=== PATIENT | female | born 1965 | race American Indian/Alaskan Native ===

== ENCOUNTER 2017-08-27 12:25 | Outpatient (CLI) | payer OTHER ==
--- NOTE | 2017-08-27 12:50 | XRay Report ---
CHEST TWO VIEWS: 08/27/17 12:25:00 CLINICAL: Bronchitis. COMPARISON: None FINDINGS: Normal heart and pulmonary vasculature.Aortic tortuosity. The lungs are normally expanded and clear.The bones and soft tissues are unremarkable. IMPRESSION: No acute cardiopulmonary process.
== END 2017-08-27 12:26 | disposition home or self-care (01) ==
LOC: SPVIMAG 12:25
PROVIDERS: ATTEND Internal Medicine
DX: J40 Bronchitis, not specified as acute or chronic (principal); Q25.46 Tortuous aortic arch
CPT/HCPCS: 71046

== ENCOUNTER 2018-01-08 10:10 | Day surgery (SDC) | payer OTHER ==
[~2018-01-08 10:10] MED LIST: NACL 0.9% 1000 ML 1,000 ML IV SCH; WATER FOR IRRIG STERILE IR ONE; WATER FOR IRRIG STERILE ONE
[2018-01-08] MEDS ORDERED: WATER FOR IRRIG STERILE IR ONE (10:20)
--- NOTE | 2018-01-08 10:50 | Anesthesia Consultation ---
Anesthesia Consult and Med Hx Date of service: 01/08/18 - Airway Anesthetic Teeth Evaluation: Good ROM Head & Neck: Adequate Mental/Hyoid Distance: Adequate Mallampati Class: Class I Intubation Access Assessment: Good - Pulmonary Exam CTA: Yes - Cardiac Exam Cardiac Exam: RRR - Pre-Operative Health Status ASA Pre-Surgery Classification: ASA2 Proposed Anesthetic Plan: MAC - Cardiovascular System Hx Hypertension: Yes
--- NOTE | 2018-01-08 10:50 | Anesthesia Day of Surgery ---
Anesthesia Day of Surgery - Day of Surgery Patient Examined: Yes Patient H&P Reviewed: Yes Patient is NPO: Yes
[2018-01-08] MEDS ORDERED: DIPRIVAN 10 MG/ML IV ONE ×2 (11:07)
--- NOTE | 2018-01-08 11:34 | Short Stay Summary ---
Short Stay Documentation Date of service: 01/08/18 Narrative H&P: the patient presents today for her first routine screening colonoscopy. Average risks. - History Past Medical History: hypertension, hyperlipidemia Past Surgical History: Social history: no significant social history - Allergies and Medications Current Medications: Allergies No Known Allergies Allergy (Unverified 01/07/18 13:00) Home Medications Medication Instructions Recorded Confirmed Last Taken Type Citalopram Hydrobromide 1 tab PO DAILY 01/07/18 01/08/18 01/05/18 14:00 History [Citalopram HBr] Ibuprofen [Advil 100 MG tab] 200 mg PO Q6H PRN 01/07/18 01/08/18 01/04/18 09:00 History LORazepam [Ativan] 1 mg PO TID PRN 01/07/18 01/08/18 01/01/18 20:00 History Metoprolol Xl [Metoprolol 100 mg PO QDAY 01/07/18 01/08/18 08/07/17 09:00 History SUCCINATE ER TAB] amLODIPine [Norvasc] 5 mg PO DAILY 01/07/18 01/08/18 01/08/18 11:02 History 1200 Active Medications Sodium Chloride (Nacl 0.9% 1000 Ml) 1,000 mls @ 50 mls/hr IV DIRECT ANITA Last Admin: 01/08/18 10:58 Dose: 50 mls/hr - Physical exam General appearance: no acute distress, well-nourished Integumentary: no rash, no growths, no abnormal pigmentation HEENT: Atraumatic, PERRLA, EOMI, Mucous membr. moist/pink Lungs: Clear to auscultation, Normal air movement Breasts: deferred Heart: Regular rate, Normal S1, Normal S2, No murmurs Gastrointestinal: normoactive bowel sounds, no tenderness, no distended, no masses, no guarding, no organomegaly Female Genitourinary: deferred Rectal Exam: normal exam-external/orifice, normal rectal tone, no mass Extremities: no ischemia, pulses intact, pulses symmetrical, No edema, normal temperature, normal color, Full ROM Neurological: Normal gait, Normal speech, Strength at 5/5 X4 ext, Normal tone, Sensation intact, Cranial nerves 3-12 NL - Brief post op/procedure progress note Date of procedure: 01/08/18 Findings: see dictated report Estimated blood loss: none Pathology: none Condition: stable - Disposition Condition at discharge: Good - Discharge Diagnoses (1) Colon cancer screening Status: Acute Short Stay Discharge Plan Activity: other (no driving for 24 hours) Weight Bearing Status: Full Weight Bearing Diet: regular Follow up with: BRIA BECKETT ANP [Primary Care Provider] - 7 Days
--- NOTE | 2018-01-08 11:35 | Operative Report ---
Operative Report Operative Report: Date of procedure: 01/08/2018 Preprocedure diagnosis: Colon cancer screening, average risk. No prior studies. Post procedure diagnosis: Normal study Procedure: Colonoscopy to the cecum Endoscopist: Dr. Olea Anesthesia: Monitored anesthesia care per anesthesia department Estimated blood loss: 0 Medications: Monitored anesthesia care. See separate report by anesthesia for details. After careful discussion of the nature and purpose of the procedure as well as details of the technique risks benefits and alternatives the patient gave consent. Please see recent history and physical from the office. The patient was placed in the left lateral decubitus position and medicated per anesthesia. A rectal exam was performed sphincter tone was normal there were no masses palpable. The [employer] 570 scope was passed transanally and advanced under continuous direct vision without difficulty to the cecum. The colon was well prepared. The cecum was normal. The ascending colon was normal and on forward and retroflexed views. The transverse colon, descending colon, and sigmoid colon were normal. The rectum was normal on forward and retroflexed views. The procedure was well-tolerated overall and the patient was observed in recovery. Conclusions: Normal colonoscopy to the cecum. Plan: Repeat colonoscopy in 10 years, sooner if clinically indicated. Signed electronically: Teddy Olea M.D.
[2018-01-08 11:59] VITALS: BP 126/82
--- NOTE | 2018-01-08 16:22 | Post Anesthesia Evaluation ---
- Post Anesthesia Evaluation Patient Participated: Yes Airway Patent: Yes Stable Respiratory Function: Yes Nausea/Vomiting: No Temp > 96.8F: Yes Pain Manageable: Yes Adequeate Hydration: Yes Anesthesia Complications: No Block Receding Appropriately: No Patient on Ventilator: No
== END 2018-01-08 10:11 | disposition home or self-care (01) ==
LOC: GIO 10:10
PROVIDERS: ATTEND Internal Medicine Gastroenterology
DX: Z12.11 Encounter for screening for malignant neoplasm of colon (principal); I10 Essential (primary) hypertension
CPT/HCPCS: 45378; J2704; J7030

== ENCOUNTER 2018-01-11 07:29 | Outpatient (CLI) | payer OTHER ==
--- NOTE | 2018-01-11 08:17 | Mammography Report ---
BILATERAL MAMMOGRAM: FINDINGS: Baseline examination. The breast tissue is heterogeneously dense, which could obscure detection of small masses (approximately 50%-75% glandular). No mass, distortion, suspicious calcification, or skin change is seen. CAD was utilized. IMPRESSION: Negative mammogram. There is no mammographic evidence of malignancy. RECOMMENDATION: Follow-up per ACS guidelines. BI-RADS CATEGORY: 1 = Negative ACR BI-RADS MAMMOGRAPHIC CODES: 0 = Needs additional imaging evaluation; 1 = Negative; 2 = Benign; 3 = Probably benign; 4 = Suspicious; 5 = Malignant; 6 = Known biopsy-proven malignancy COMMENT: 1. Dense breast tissue, i.e., adenosis, fibrocystic changes, etc., may obscure an underlying neoplasm. 2. Approximately 10% of cancers are not detected with mammography. 3. A negative mammography report should not delay biopsy if a clinically suspicious mass is present. COMMENT: Patient follow-up letters are generated in [employer].
== END 2018-01-11 07:30 | disposition home or self-care (01) ==
LOC: MAMMO 07:29
DX: Z12.31 Encounter for screening mammogram for malignant neoplasm of breast (principal); E78.00 Pure hypercholesterolemia, unspecified; I10 Essential (primary) hypertension; F32.9 Major depressive disorder, single episode, unspecified; F41.9 Anxiety disorder, unspecified; Z87.891 Personal history of nicotine dependence
CPT/HCPCS: 77067

== ENCOUNTER 2021-03-15 14:32 | Outpatient (CLI) | payer OTHER ==
--- NOTE | 2021-03-15 15:40 | Mammography Report ---
BILATERAL DIGITAL SCREENING MAMMOGRAM WITH CAD HISTORY: Screening mammogram. TECHNIQUE: Routine digital mammographic imaging performed. This examination was interpreted with [place] of Computer-aided Detection analysis. COMPARISON: 01/11/2018. FINDINGS: Breast Density: heterogeneously dense breast parenchymal pattern which somewhat lessens the sensitivi ty of the evaluation. Digital CC and MLO views demonstrate partially obscured oval mass in the left lateral breast, felt to be superior on the MLO view. No suspicious findings within the right breast. IMPRESSION: There is a partially obscured oval mass in the left lateral breast, felt to be superior on the MLO vi ew. Additional mammographic views and possible ultrasound is recommended. BIRADS 0-Incomplete: Needs additional imaging evaluation NOTE: WE WILL RECALL THE PATIENT FOR THIS ADDITIONAL EVALUATION. FURTHER INFORMATION: According to the [employer], yearly mammograms are recommend ed starting at age 40 and continuing as long as a woman is in good health. Clinical Breast Exams shou ld be part of a periodic health exam-about every 3 years for women in their 20s and 30s and every yea r for women 40 and over. Breast self exam is an option for women starting in their 20s. Any breast ch ranjit noted on a breast self exam should be reported promptly to the patient's healthcare provider. Br east MRI is recommended for women with an approximately 20-25% or greater lifetime risk of breast can cer, including women with a strong family history of breast or ovarian cancer and women who have been treated for Hodgkin's disease. A negative Mammography report should not discourage follow up or biopsy of a clinically significant f inding and/or abnormality. Dense breast tissue may obscure small neoplasms. The patient will be entered into a reminder system with a target due date for the next screening mamm ogram. Signer Name: Escobar Jacobs MD Signed: 03/15/2021 3:36 PM Workstation Name: [id number]
== END 2021-03-15 14:33 | disposition home or self-care (01) ==
LOC: MAMMO 14:32
DX: Z12.31 Encounter for screening mammogram for malignant neoplasm of breast (principal); N64.89 Other specified disorders of breast
CPT/HCPCS: 77067

== ENCOUNTER 2021-03-22 09:10 | Outpatient (CLI) | payer OTHER ==
--- NOTE | 2021-03-22 17:29 | Mammography Report ---
LEFT DIGITAL DIAGNOSTIC MAMMOGRAM WITH CAD , 03/22/2021 LEFT LIMITED BREAST ULTRASOUND CLINICAL INFORMATION / INDICATION: ABNORMAL MAMMOGRAM TECHNIQUE: Digital left mammographic imaging was performed. Spot compression views were obtained. Jacome it ultrasound was performed. This examination was interpreted with the benefit of Computer-Aided De tection (CAD) analysis. COMPARISON: 03/15/2021, 01/11/2018 FINDINGS: Breast Density: The breasts are heterogeneously dense, which may obscure small masses. MAMMOGRAPHIC FINDINGS: No dominant mass, suspicious calcifications, or architectural distortion in ei ther breast. There is a persistent oval nodule in the lateral left breast at approximately 3:00. ULTRASOUND FINDINGS: Targeted ultrasound evaluation was performed of the area of interest. Sonograp hic evaluation of the left breast in the 3:00 location reveals a simple cyst at 3:00, 6 cm from nippl e, measuring 10 x 5 mm. This correlates with mammographic findings. IMPRESSION: 10 mm simple cyst is present in the 3:00 location of the left breast corresponding to osmel mographic abnormality. This is a benign finding. Follow up recommendation: Routine yearly BI-RADS Category 2: Benign. A "normal" or negative report should not discourage follow up or biopsy of a clinically significant f inding. A written summary of these findings will be mailed to the patient. The patient will be entered into a mammography reporting system which will generate a reminder letter for the patient's next appointmen t at the appropriate interval. According to the [employer], yearly mammograms are recommended starting at age 40 and continuing as long as a woman is in good health. Breast MRI is recommended for women with an kaushik roximately 20-25% or greater lifetime risk of breast cancer, including women with a strong family his tory of breast or ovarian cancer and women who have been treated for Hodgkin's disease. Signer Name: Thalia Mendoza MD Signed: 03/22/2021 5:24 PM Workstation Name: [id number]
== END 2021-03-22 09:11 | disposition home or self-care (01) ==
LOC: MAMMO 09:10
PROVIDERS: ATTEND Adult Companion
DX: N60.02 Solitary cyst of left breast (principal); N63.21 Unspecified lump in the left breast, upper outer quadrant